=== PATIENT | female | born 2000 ===

== ENCOUNTER 2021-11-04 08:50 | Emergency (ER) | payer SELFPAY ==
[~2021-11-04] VITALS: Ht 154.9 cm; Wt 50.9 kg
[2021-11-04 08:51] VITALS: BP 134/68
[2021-11-04] MEDS ORDERED: SPRI28TA PO (08:58)
[2021-11-04] MEDS ORDERED: AZO-95TA3 PO (08:58)
== END 2021-11-04 10:21 | disposition left against medical advice (07) ==
LOC: M ED 08:50
DX: Z53.29 Procedure and treatment not carried out because of patient's decision for other reasons (principal)